=== PATIENT | male | born 1990 | race Caucasian/White ===

== ENCOUNTER 2021-05-07 13:52 | Inpatient (IN) ==
[2021-05-07] MEDS ORDERED: Naloxone 0.4 MG/ML INJ IVP PRN (19:42)
[2021-05-07] MEDS ORDERED: Perflutren Lipid Microsphere 1.3 ML in 0.9 % Sodium Chloride 8.7 ML IVP PRN (19:48)
[2021-05-07] MEDS ORDERED: Ipratropium/Albuterol Neb 3 ML IH PRN (21:01)
[2021-05-07 21:44] LABS: Triiodothyronine (T3) Free 3.09 pg/mL (2.50-3.90)
[2021-05-08 05:35] LABS: Basophils # 0.1 K/mcL (0.0-0.2); Basophils % 0.5 %; Eosinophils # 0.3 K/mcL (0.0-0.6); Eosinophils % 2.8 %; Hematocrit 38.6 % (37.5-50.1); Hemoglobin 12.9 g/dL (12.9-16.9); Immature Granulocytes % 0.4 % (0-4); Lymphocytes % 20.4 %; Mean Corpuscular HGB Conc 33.4 g/dL (31.6-35.5); Mean Corpuscular Hemoglobin 30.6 pg (28.0-33.3); Mean Corpuscular Volume 91.7 fL (83.0-100.0); Monocytes % 9.5 %; Neutrophils # 6.6 K/mcL (1.6-8.9); Platelet Count 279 K/mcL (140-400); Red Blood Count 4.21 M/mcL (4.19-5.50); Red Cell Distribution Width 12.1 % (11.5-14.5); Segmented Neutrophils % 66.4 %
[2021-05-08 05:49] LABS: BUN/Creatinine Ratio 12 (6-26); Blood Urea Nitrogen 16 mg/dL (6-20); Calcium 7.8 mg/dL (8.6-10.3); Carbon Dioxide 29 mEq/L (23-29); Chloride 106 mEq/L (98-107); Chol/HDL Ratio 7.6 (0-4.9); Cholesterol 257 mg/dL (< 200); Glucose 90 mg/dL (70-105); HDL Cholesterol 34 mg/dL (40-59); LDL Cholesterol,Calculated 191 mg/dL (< 100); Osmolality,Calculated 291 (280-300); Potassium 4.1 mEq/L (3.5-5.1); Sodium 140 mEq/L (136-145); Triglycerides 159 mg/dL (< 150); eGFR For African Americans > 60 (> 60); eGFR For Non-African Americans > 60 (> 60)
[2021-05-08 06:25] LABS: Thyroid Stimulating Hormone 69.449 mcIU/mL (0.340-5.600)
[2021-05-08 07:58] LABS: INR 1.2; Prothrombin Time 14.3 Seconds (9.4-12.1)
[2021-05-08] MEDS ORDERED: Azithromycin 500 MG in 0.9 % Sodium Chloride 250 ML IVPB SCH (09:00)
[2021-05-08] MEDS ORDERED: cefTRIAXone 1,000 MG in 0.9 % Sodium Chloride Mini Bag 100 ML IVPB SCH (09:00)
[2021-05-08] MEDS: levoFLOXacin 750 MG/150 ML 750 MG/150 ML BAG IVPB SCH (11:43)
[2021-05-08] MEDS: Ondansetron 4 MG/2 ML VIAL IVP PRN (12:29)
[2021-05-08 13:18] LABS: Adenovirus Not Detected (Not Detect); Bordetella Pertussis Not Detected (Not Detect); Chlamydophila pneumoniae Not Detected (Not Detect); Coronavirus 229E Not Detected (Not Detect); Coronavirus HKU1 Not Detected (Not Detect); Coronavirus NL63 Not Detected (Not Detect); Coronavirus OC43 Not Detected (Not Detect); Human Metapneumovirus Not Detected (Not Detect); Human Rhinovirus/Enterovirus Not Detected (Not Detect); Influenza A Subtype 2009 H1 Not Detected (Not Detect); Influenza B Not Detected (Not Detect); Mycoplasma pneumoniae Not Detected (Not Detect); Parainfluenza Virus 1 Not Detected (Not Detect); Parainfluenza Virus 2 Not Detected (Not Detect); Parainfluenza Virus 3 Not Detected (Not Detect); Parainfluenza Virus 4 Not Detected (Not Detect); Respiratory Syncytial Virus Not Detected (Not Detect); SARS-CoV-2 Not Detected (Not Detect)
[2021-05-08 14:04] LABS: Bilirubin,Urine Negative (Negative); Blood,Urine Moderate (Negative); Clarity,Urine Turbid (Clear); Color,Urine Yellow (Yellow); Glucose,Urine (UA) Normal (Normal); Hyaline Casts,Urine Moderate per lpf (None Seen); Ketones,Urine Negative (Negative); Leukocyte Esterase,Urine Negative (Negative); Mucus,Urine Many per lpf (None-Few); Nitrite,Urine Negative (Negative); Protein,Urine >=600 mg/dL (Neg-Trace); RBC,Urine 15-30 per hpf (0-3); Specific Gravity,Urine > 1.030 (1.010-1.025); Urobilinogen,Urine Normal (Normal); WBC,Urine 15-30 per hpf (0-3)
[2021-05-08 14:40] LABS: Lactate Dehydrogenase 177 Units/L (140-271); Total Protein 5.8 g/dL (6.4-8.9)
[2021-05-08 15:44] LABS: RBC,Pleural Fluid 2000 RBC/mcL
[2021-05-08 15:50] LABS: Glucose,Pleural Fluid 85 mg/dL (No Ref Range); LDH,Pleural Fluid 160 Units/L (No Ref Range); Total Protein,Pleural Fluid < 2.0 g/dL
[2021-05-08] MEDS: Levothyroxine Sodium 100 MCG VIAL IVP SCH (16:22)
[2021-05-08 16:40] LABS: Appearance of Pleural Fl Clear (Clear); Basophils,Pleural Fluid 0 %; Eosinophils,Pleural Fluid 0 %
[2021-05-09] MEDS: Acetaminophen 325 MG TABLET PO PRN ×2 (00:24→21:20)
[2021-05-09] MEDS ORDERED: Prochlorperazine 10 MG/2 ML VIAL IVP ONE (00:43)
[2021-05-09 03:16] LABS: Basophils % 0.4 %; Eosinophils # 0.2 K/mcL (0.0-0.6); Eosinophils % 2.2 %; Hematocrit 38.5 % (37.5-50.1); Hemoglobin 13.1 g/dL (12.9-16.9); Immature Granulocytes % 0.4 % (0-4); Lymphocytes # 1.4 K/mcL (0.6-4.6); Mean Corpuscular Hemoglobin 30.9 pg (28.0-33.3); Mean Corpuscular Volume 90.8 fL (83.0-100.0); Mean Platelet Volume 9.2 fL (9.4-12.4); Monocytes # 0.8 K/mcL (0.0-1.3); Monocytes % 7.6 %; Neutrophils # 7.6 K/mcL (1.6-8.9); Platelet Count 296 K/mcL (140-400); Red Blood Count 4.24 M/mcL (4.19-5.50); Red Cell Distribution Width 11.9 % (11.5-14.5); Segmented Neutrophils % 75.4 %
[2021-05-09 03:43] LABS: BUN/Creatinine Ratio 18 (6-26); Blood Urea Nitrogen 20 mg/dL (6-20); Calcium 7.8 mg/dL (8.6-10.3); Carbon Dioxide 22 mEq/L (23-29); Chloride 105 mEq/L (98-107); Glucose 91 mg/dL (70-105); Osmolality,Calculated 282 (280-300); Potassium 3.6 mEq/L (3.5-5.1); Sodium 135 mEq/L (136-145); eGFR For African Americans > 60 (> 60); eGFR For Non-African Americans > 60 (> 60)
[2021-05-09] MEDS: Levothyroxine Sodium 100 MCG VIAL IVP SCH ×2 (05:41→06:01)
[2021-05-09] MEDS: levoFLOXacin 750 MG/150 ML 750 MG/150 ML BAG IVPB SCH (11:50)
[2021-05-09] MEDS: Ondansetron 4 MG/2 ML VIAL IVP PRN (13:19)
[2021-05-10 06:06] LABS: Basophils % 0.3 %; Eosinophils # 0.3 K/mcL (0.0-0.6); Eosinophils % 3.1 %; Hematocrit 38.6 % (37.5-50.1); Immature Granulocytes % 0.5 % (0-4); Lymphocytes % 23.2 %; Mean Corpuscular HGB Conc 33.7 g/dL (31.6-35.5); Mean Corpuscular Hemoglobin 30.2 pg (28.0-33.3); Mean Corpuscular Volume 89.8 fL (83.0-100.0); Mean Platelet Volume 8.9 fL (9.4-12.4); Monocytes # 0.7 K/mcL (0.0-1.3); Monocytes % 7.5 %; Neutrophils # 5.7 K/mcL (1.6-8.9); Platelet Count 286 K/mcL (140-400); Red Cell Distribution Width 11.9 % (11.5-14.5); Segmented Neutrophils % 65.4 %; White Blood Count 8.7 K/mcL (4.3-11.1)
[2021-05-10 06:21] LABS: Potassium 4.1 mEq/L (3.5-5.1)
[2021-05-10 06:36] LABS: Triiodothyronine (T3) Free 2.24 pg/mL (2.50-3.90)
[2021-05-10] MEDS: levoFLOXacin 750 MG/150 ML 750 MG/150 ML BAG IVPB SCH (09:50)
[2021-05-10] MEDS: Ondansetron ODT 4 MG TAB.RAPDIS SL PRN (10:48)
[2021-05-10] MEDS ORDERED: GuaiFENesin/Codeine Oral Soln 5 ML UDC PO PRN (15:32)
[2021-05-10] MEDS: Acetaminophen 325 MG TABLET PO PRN (23:29)
[2021-05-11] MEDS: levoFLOXacin 500 MG/100 ML 500 MG/100 ML BAG IVPB SCH (07:42)
[2021-05-11] MEDS: Ondansetron ODT 4 MG TAB.RAPDIS SL PRN ×2 (07:45→21:30)
[2021-05-11 12:28] LABS: Basophils % 0.3 %; Eosinophils # 0.2 K/mcL (0.0-0.6); Eosinophils % 1.8 %; Hematocrit 38.9 % (37.5-50.1); Hemoglobin 13.1 g/dL (12.9-16.9); Immature Granulocytes % 0.4 % (0-4); Lymphocytes # 1.8 K/mcL (0.6-4.6); Mean Corpuscular HGB Conc 33.7 g/dL (31.6-35.5); Mean Corpuscular Hemoglobin 30.1 pg (28.0-33.3); Mean Corpuscular Volume 89.4 fL (83.0-100.0); Mean Platelet Volume 9.2 fL (9.4-12.4); Monocytes # 0.7 K/mcL (0.0-1.3); Monocytes % 6.4 %; Neutrophils # 8.3 K/mcL (1.6-8.9); Platelet Count 274 K/mcL (140-400); Red Blood Count 4.35 M/mcL (4.19-5.50); Red Cell Distribution Width 11.9 % (11.5-14.5); Segmented Neutrophils % 75.1 %; White Blood Count 11.1 K/mcL (4.3-11.1)
[2021-05-11 12:44] LABS: Calcium 7.9 mg/dL (8.6-10.3); Potassium 4.4 mEq/L (3.5-5.1)
[2021-05-11 15:28] LABS: Complement C3 159 mg/dL (87-200)
[2021-05-11 16:41] LABS: Amorphous Sediment,Urine Few per hpf (None-Few); Bacteria,Urine Few per hpf (None-Few); Bilirubin,Urine Negative (Negative); Blood,Urine Moderate (Negative); Clarity,Urine Turbid (Clear); Color,Urine Yellow (Yellow); Glucose,Urine (UA) Normal (Normal); Granular Casts,Urine Moderate per lpf (None Seen); Hyaline Casts,Urine Many per lpf (None Seen); Ketones,Urine Negative (Negative); Leukocyte Esterase,Urine Negative (Negative); Mucus,Urine Few per lpf (None-Few); Nitrite,Urine Negative (Negative); Protein,Urine >=600 mg/dL (Neg-Trace); Specific Gravity,Urine > 1.030 (1.010-1.025); Urobilinogen,Urine Normal (Normal); WBC,Urine 15-30 per hpf (0-3)
[2021-05-11 16:58] LABS: Protein/Creatinine Ratio,Urine 4.19 mg/mg (0.00-0.20)
[2021-05-12] MEDS: Ondansetron ODT 4 MG TAB.RAPDIS SL PRN ×2 (08:39→19:21)
[2021-05-12] MEDS: levoFLOXacin 500 MG/100 ML 500 MG/100 ML BAG IVPB SCH (08:39)
[2021-05-12 10:43] LABS: Calcium 7.8 mg/dL (8.6-10.3); Potassium 4.1 mEq/L (3.5-5.1)
[2021-05-12 13:35] LABS: Hepatitis B Surface Antigen Nonreactive (Nonreactive)
[2021-05-12 14:03] LABS: Hepatitis B Core IgM Nonreactive (Nonreactive)
[2021-05-12 14:04] LABS: Hepatitis A Antibody IgM Nonreactive (Nonreactive); Hepatitis C Virus Antibody Nonreactive (Nonreactive)
[2021-05-12] MEDS: 0.9 % Sodium Chloride 1,000 ML IVC SCH ×2 (14:12→21:56)
[2021-05-12] MEDS ORDERED: Prochlorperazine 10 MG/2 ML VIAL IVP PRN (22:42)
[2021-05-13] MEDS: Ondansetron ODT 4 MG TAB.RAPDIS SL PRN ×2 (04:49→11:06)
[2021-05-13 06:33] LABS: Estimated Average Glucose 111 mg/dl; Hemoglobin A1C 5.5 %
[2021-05-13] MEDS: levoFLOXacin 500 MG/100 ML 500 MG/100 ML BAG IVPB SCH (08:34)
[2021-05-13 08:53] LABS: Calcium 7.2 mg/dL (8.6-10.3); Potassium 4.1 mEq/L (3.5-5.1)
[2021-05-13 10:55] LABS: Thyroglobulin Antibody <0.9 IU/mL (0.0-4.0)
[2021-05-13 11:30] LABS: Hepatitis B Surface Antigen Nonreactive (Nonreactive)
[2021-05-13 12:40] LABS: Hepatitis B Surface Antibody 17.89 mIU/mL
[2021-05-13] MEDS: *HR* Promethazine 25 MG/ML VIAL IM PRN (23:29)
[2021-05-14 05:36] LABS: Basophils % 0.3 %; Eosinophils # 0.3 K/mcL (0.0-0.6); Eosinophils % 2.5 %; Hematocrit 36.8 % (37.5-50.1); Hemoglobin 12.3 g/dL (12.9-16.9); Immature Granulocytes % 0.5 % (0-4); Lymphocytes # 2.2 K/mcL (0.6-4.6); Lymphocytes % 18.5 %; Mean Corpuscular HGB Conc 33.4 g/dL (31.6-35.5); Mean Corpuscular Hemoglobin 29.9 pg (28.0-33.3); Mean Corpuscular Volume 89.3 fL (83.0-100.0); Mean Platelet Volume 9.3 fL (9.4-12.4); Monocytes # 0.9 K/mcL (0.0-1.3); Monocytes % 7.7 %; Neutrophils # 8.5 K/mcL (1.6-8.9); Platelet Count 285 K/mcL (140-400); Red Blood Count 4.12 M/mcL (4.19-5.50); Segmented Neutrophils % 70.5 %; White Blood Count 12.1 K/mcL (4.3-11.1)
[2021-05-14 05:45] LABS: INR 1.3; Prothrombin Time 14.4 Seconds (9.4-12.1)
[2021-05-14 05:50] LABS: Calcium 7.5 mg/dL (8.6-10.3); Potassium 4.3 mEq/L (3.5-5.1)
[2021-05-14] MEDS ORDERED: 0.9 % Sodium Chloride 1,000 ML ONE (07:07)
[2021-05-14] MEDS: levoFLOXacin 500 MG/100 ML 500 MG/100 ML BAG IVPB SCH (09:26)
[2021-05-14] MEDS: Ondansetron ODT 4 MG TAB.RAPDIS SL PRN (11:05)
[2021-05-14] MEDS ORDERED: *HR* Heparin 5,000 UNIT/ML VIAL IVP PRN ×2 (11:26)
[2021-05-14] MEDS ORDERED: *HR* Heparin 5,000 UNIT/ML VIAL IVP ONE ×2 (11:26→20:03)
[2021-05-14] MEDS ORDERED: levoFLOXacin 500 MG TABLET PO ONE (11:55)
[2021-05-14] MEDS ORDERED: Furosemide 40 MG/4 ML VIAL IVP ONE ×2 (11:59→19:15)
[2021-05-14] MEDS ORDERED: 0.9 % Sodium Chloride 500 ML ONE (13:49)
[2021-05-14] MEDS ORDERED: *HR* FentaNYL (PF) 100 MCG/2 ML VIAL IVP ONE (13:52)
[2021-05-14] MEDS ORDERED: *HR* Midazolam HCl 2 MG/2 ML VIAL IVP ONE (13:52)
[2021-05-14] MEDS ORDERED: Heparin 1,000 UNITS/500 mL 500 ML ONE (14:29)
[2021-05-14] MEDS ORDERED: *HR* Heparin 5,000 UNIT/ML VIAL ONE (14:35)
[2021-05-14] MEDS ORDERED: 0.9 % Sodium Chloride 250 ML IVC PRN (14:47)
[2021-05-14] MEDS ORDERED: 0.9 % Sodium Chloride 1,000 ML PRIME SCH (15:00)
[2021-05-14] MEDS: Heparin 25,000UNIT/250ML 1/2NS 25,000 UNIT/250 ML IV.SOLN IVC SCH (19:59)
[2021-05-15] MEDS: Ondansetron ODT 4 MG TAB.RAPDIS SL PRN ×3 (02:04→21:09)
[2021-05-15 05:43] LABS: Hematocrit 38.1 % (37.5-50.1); Hemoglobin 12.9 g/dL (12.9-16.9); Mean Corpuscular HGB Conc 33.9 g/dL (31.6-35.5); Mean Corpuscular Hemoglobin 30.5 pg (28.0-33.3); Mean Corpuscular Volume 90.1 fL (83.0-100.0); Mean Platelet Volume 9.2 fL (9.4-12.4); Platelet Count 283 K/mcL (140-400); Red Blood Count 4.23 M/mcL (4.19-5.50); White Blood Count 11.8 K/mcL (4.3-11.1)
[2021-05-15 06:02] LABS: Calcium 7.4 mg/dL (8.6-10.3); Potassium 4.3 mEq/L (3.5-5.1)
[2021-05-15 06:56] LABS: Serine Protease-3 Antibody 0 AU/mL (0-19)
[2021-05-15] MEDS ORDERED: 0.9 % Sodium Chloride 250 ML IVC PRN (07:09)
[2021-05-15] MEDS: *HR* Promethazine 25 MG/ML VIAL IM PRN (10:14)
[2021-05-15] MEDS ORDERED: *HR* Heparin 10,000 UNIT/10 ML VIAL ONE (11:30)
[2021-05-15 14:25] LABS: Hematocrit 39.8 % (37.5-50.1); Hemoglobin 13.3 g/dL (12.9-16.9)
[2021-05-15] MEDS: Heparin 25,000UNIT/250ML 1/2NS 25,000 UNIT/250 ML IV.SOLN IVC SCH (15:12)
[2021-05-16] MEDS: Heparin 25,000UNIT/250ML 1/2NS 25,000 UNIT/250 ML IV.SOLN IVC SCH (03:14)
[2021-05-16 03:29] LABS: Hematocrit 36.2 % (37.5-50.1); Hemoglobin 12.2 g/dL (12.9-16.9); Mean Corpuscular HGB Conc 33.7 g/dL (31.6-35.5); Mean Corpuscular Hemoglobin 30.4 pg (28.0-33.3); Mean Corpuscular Volume 90.3 fL (83.0-100.0); Mean Platelet Volume 9.4 fL (9.4-12.4); Platelet Count 266 K/mcL (140-400); Red Blood Count 4.01 M/mcL (4.19-5.50); Red Cell Distribution Width 12.2 % (11.5-14.5)
[2021-05-16 03:53] LABS: Calcium 7.4 mg/dL (8.6-10.3); Potassium 4.2 mEq/L (3.5-5.1)
[2021-05-16] MEDS: Ondansetron ODT 4 MG TAB.RAPDIS SL PRN ×4 (05:39→22:18)
[2021-05-16 06:36] LABS: Chol/HDL Ratio 7.9 (0-4.9)
[2021-05-16] MEDS ORDERED: 0.9 % Sodium Chloride 250 ML IVC PRN (07:16)
[2021-05-16] MEDS ORDERED: Hydrocortisone 1% OINT 28 GM TUBE TP PRN (09:47)
[2021-05-16] MEDS ORDERED: *HR* HYDROcodone/Acet 5/325 mg TABLET PO PRN (10:31)
[2021-05-16] MEDS ORDERED: *HR* Heparin 10,000 UNIT/10 ML VIAL ONE (11:05)
[2021-05-16 13:48] LABS: Hematocrit 38.6 % (37.5-50.1); Hemoglobin 12.9 g/dL (12.9-16.9)
[2021-05-16] MEDS ORDERED: Prochlorperazine 10 MG/2 ML VIAL IVP PRN (16:26)
[2021-05-16 18:41] LABS: ANCA IFA Titer <1:20 (<1:20)
[2021-05-17 00:54] LABS: Alpha 2 Globulin (PEP) 1.17 g/dL (0.48-1.05); Beta Globulin (PEP) 0.68 g/dL (0.48-1.10)
[2021-05-17 03:55] LABS: Hematocrit 36.1 % (37.5-50.1); Hemoglobin 12.1 g/dL (12.9-16.9); Mean Corpuscular HGB Conc 33.5 g/dL (31.6-35.5); Mean Corpuscular Hemoglobin 30.1 pg (28.0-33.3); Mean Corpuscular Volume 89.8 fL (83.0-100.0); Mean Platelet Volume 9.5 fL (9.4-12.4); Platelet Count 286 K/mcL (140-400); Red Blood Count 4.02 M/mcL (4.19-5.50); Red Cell Distribution Width 11.8 % (11.5-14.5); White Blood Count 9.5 K/mcL (4.3-11.1)
[2021-05-17 04:17] LABS: Calcium 7.6 mg/dL (8.6-10.3); Potassium 4.4 mEq/L (3.5-5.1)
[2021-05-17] MEDS: Ondansetron ODT 4 MG TAB.RAPDIS SL PRN ×2 (08:36→16:37)
[2021-05-17] MEDS: Torsemide 20 MG TABLET PO SCH ×2 (11:11→20:29)
[2021-05-17 18:39] LABS: Coxsackie B Type 1 Antibody <1:10 (<1:10); Coxsackie B Type 2 Antibody 1:10 (<1:10); Coxsackie B Type 3 Antibody <1:10 (<1:10); Coxsackie B Type 4 Antibody <1:10 (<1:10); Coxsackie B Type 5 Antibody 1:20 (<1:10)
[2021-05-18] MEDS: Ondansetron ODT 4 MG TAB.RAPDIS SL PRN ×2 (00:06→09:30)
[2021-05-18 00:35] VITALS: O2SAT 90
[2021-05-18 00:44] LABS: Hematocrit 36.5 % (37.5-50.1); Hemoglobin 12.2 g/dL (12.9-16.9); Mean Corpuscular HGB Conc 33.4 g/dL (31.6-35.5); Mean Corpuscular Hemoglobin 29.7 pg (28.0-33.3); Mean Corpuscular Volume 88.8 fL (83.0-100.0); Mean Platelet Volume 9.6 fL (9.4-12.4); Platelet Count 367 K/mcL (140-400); Red Blood Count 4.11 M/mcL (4.19-5.50); Red Cell Distribution Width 11.9 % (11.5-14.5)
[2021-05-18 00:45] LABS: White Blood Count 21.3 K/mcL (4.3-11.1)
[2021-05-18 00:58] LABS: Calcium 7.3 mg/dL (8.6-10.3)
[2021-05-18 08:36] VITALS: BP 142/84; PULSE 90; TEMP 98
[2021-05-18 11:01] LABS: ANCA IFA Pattern NONE DETECTED (None Detected)
[2021-05-18 11:01] LABS: Immunoglobulin A 277 mg/dL (68-408); Immunoglobulin G 484 mg/dL (768-1632); Immunoglobulin M 59 mg/dL (35-263)
[2021-05-18 11:17] LABS: Coxsackie B Type 6 Antibody <1:10 (<1:10)
[2021-05-18 11:18] LABS: IFE Reflexed IFE Done
[2021-05-18 11:36] LABS: GBM IgG Multiplex Bead Assay 0 AU/mL (0-19); Glomerular Basement Memb IgG NEGATIVE (Negative)
[2021-05-19] MEDS ORDERED: predniSONE 20 MG TABLET PO SCH (09:00)
== END 2021-05-18 09:58 | disposition short-term general hospital (02) | DRG 193 ==
LOC: 3ANU → SUATTDRO 18:15 → 2ANU 05-15 21:44
PROVIDERS: ADMIT Student in an Organized Health Care Education/Training Program; ATTEND Family Medicine

== ENCOUNTER 2021-10-02 16:05 | Inpatient (IN) ==
[2021-10-02 18:42] LABS: Basophils # 0.1 K/mcL (0.0-0.2); Basophils % 0.6 %; Eosinophils # 0.3 K/mcL (0.0-0.6); Eosinophils % 1.9 %; Hematocrit 43.3 % (37.5-50.1); Hemoglobin 13.9 g/dL (12.9-16.9); Immature Granulocytes % 1.2 % (0-4); Lymphocytes # 2.9 K/mcL (0.6-4.6); Lymphocytes % 21.5 %; Mean Corpuscular HGB Conc 32.1 g/dL (31.6-35.5); Mean Corpuscular Hemoglobin 29.6 pg (28.0-33.3); Mean Corpuscular Volume 92.3 fL (83.0-100.0); Mean Platelet Volume 8.6 fL (9.4-12.4); Monocytes % 7.4 %; Platelet Count 698 K/mcL (140-400); Red Blood Count 4.69 M/mcL (4.19-5.50); Red Cell Distribution Width 12.1 % (11.5-14.5); Segmented Neutrophils % 67.4 %; White Blood Count 13.4 K/mcL (4.3-11.1)
[2021-10-02 19:03] LABS: BUN/Creatinine Ratio 14 (6-26); Blood Urea Nitrogen 13 mg/dL (6-20); Calcium 8.7 mg/dL (8.6-10.3); Carbon Dioxide 29 mEq/L (23-29); Chloride 101 mEq/L (98-107); Glucose 93 mg/dL (70-105); Osmolality,Calculated 288 (280-300); Potassium 3.6 mEq/L (3.5-5.1); Sodium 139 mEq/L (136-145); eGFR For African Americans > 60 (> 60); eGFR For Non-African Americans > 60 (> 60)
[2021-10-02 19:04] LABS: Troponin I < 0.03 ng/mL (< 0.04)
[2021-10-02 21:02] LABS: Influenza A PCR Negative (Negative); Influenza B PCR Negative (Negative); Resp. Syncytial Virus PCR Negative (Negative)
[2021-10-02 21:05] LABS: SARS-CoV-2 by PCR (In House) Negative (Negative)
[2021-10-02] MEDS ORDERED: Isovue-370 500 ML BOTTLE IVP ONE (21:10)
[2021-10-02] MEDS ORDERED: Cefepime HCl 1,000 MG in Water for inj. (sterile) 10 ML IVP ONE (23:00)
[2021-10-02] MEDS ORDERED: Azithromycin 500 MG in 0.9 % Sodium Chloride 250 ML IVPB ONE (23:32)
[2021-10-03] MEDS ORDERED: *HR* HYDROcodone/Acet 5/325 mg TABLET PO PRN (00:11)
[2021-10-03] MEDS ORDERED: *HR* Promethazine 25 MG/ML VIAL IM PRN (00:11)
[2021-10-03] MEDS ORDERED: Naloxone 0.4 MG/ML INJ IVP PRN (00:11)
[2021-10-03] MEDS ORDERED: *HR* OxyCODONE Immed Rel 5 MG TABLET PO PRN (00:11)
[2021-10-03] MEDS ORDERED: Melatonin 3 MG TABLET PO PRN (00:11)
[2021-10-03] MEDS ORDERED: Ondansetron 4 MG/2 ML VIAL IVP PRN (00:11)
[2021-10-03] MEDS ORDERED: Acetaminophen 325 MG TABLET PO PRN (00:11)
[2021-10-03 01:51] LABS: Alanine Aminotransferase 28 Units/L (7-52); Albumin 3.2 g/dL (3.5-5.7); Alkaline Phosphatase 68 Units/L (34-104); Aspartate Amino Transferase 16 Units/L (13-39); BUN/Creatinine Ratio 13 (6-26); Bilirubin,Total 0.2 mg/dL (0.3-1.0); Blood Urea Nitrogen 12 mg/dL (6-20); Calcium 8.7 mg/dL (8.6-10.3); Carbon Dioxide 23 mEq/L (23-29); Chloride 106 mEq/L (98-107); Globulin 3.3 g/dL (2.4-3.5); Glucose 78 mg/dL (70-105); Osmolality,Calculated 281 (280-300); Phosphorous 3.5 mg/dL (2.7-4.5); Potassium 3.3 mEq/L (3.5-5.1); Sodium 136 mEq/L (136-145); Total Protein 6.5 g/dL (6.4-8.9); eGFR For African Americans > 60 (> 60); eGFR For Non-African Americans > 60 (> 60)
[2021-10-03] MEDS: Ringers Solution, Lactated 1,000 ML IVC SCH ×2 (01:58→12:40)
[2021-10-03 02:21] LABS: Basophils # 0.1 K/mcL (0.0-0.2); Basophils % 0.8 %; Eosinophils # 0.2 K/mcL (0.0-0.6); Eosinophils % 1.9 %; Hematocrit 44.9 % (37.5-50.1); Hemoglobin 13.7 g/dL (12.9-16.9); Immature Granulocytes % 1.2 % (0-4); Lymphocytes # 3.3 K/mcL (0.6-4.6); Lymphocytes % 25.6 %; Mean Corpuscular HGB Conc 30.5 g/dL (31.6-35.5); Mean Corpuscular Hemoglobin 28.9 pg (28.0-33.3); Mean Corpuscular Volume 94.7 fL (83.0-100.0); Mean Platelet Volume 8.7 fL (9.4-12.4); Monocytes # 0.9 K/mcL (0.0-1.3); Monocytes % 7.1 %; Neutrophils # 8.1 K/mcL (1.6-8.9); Platelet Count 606 K/mcL (140-400); Red Blood Count 4.74 M/mcL (4.19-5.50); Red Cell Distribution Width 12.1 % (11.5-14.5); Segmented Neutrophils % 63.4 %; White Blood Count 12.7 K/mcL (4.3-11.1)
[2021-10-03] MEDS: Doxycycline 100 MG in 0.9 % Sodium Chloride Mini Bag 100 ML IVPB SCH ×2 (05:22→17:28)
[2021-10-03] MEDS: *HR* Heparin 5,000 UNIT/ML VIAL SQ SCH ×3 (05:23→23:01)
[2021-10-03] MEDS ORDERED: cefTRIAXone 1,000 MG in 0.9 % Sodium Chloride Mini Bag 100 ML IVPB SCH (09:00)
[2021-10-03 12:27] LABS: INR 1.2; Prothrombin Time 13.1 Seconds (9.4-12.1)
[2021-10-03 12:45] LABS: Lactate Dehydrogenase 184 Units/L (140-271); Total Protein 6.5 g/dL (6.4-8.9)
[2021-10-03] MEDS ORDERED: Ondansetron 4 MG/2 ML VIAL ONE (13:31)
[2021-10-03] MEDS ORDERED: Lidocaine -MPF 2% 5 ML VIAL ONE (13:31)
[2021-10-03] MEDS ORDERED: *HR* Midazolam HCl 2 MG/2 ML VIAL ONE (13:32)
[2021-10-03] MEDS ORDERED: *HR* FentaNYL (PF) 100 MCG/2 ML VIAL ONE (13:32)
[2021-10-03] MEDS ORDERED: Lidocaine HCL 4 ML Topical Solution (Laryng-O-Jet Kit Sterile Pak) TP ONE (14:07)
[2021-10-03] MEDS ORDERED: *HR* Succinylcholine 200 MG/10 ML VIAL IVP ONE (14:07)
[2021-10-03 16:27] LABS: RBC,Pleural Fluid 57000 RBC/mcL
[2021-10-03 16:36] LABS: Appearance of Pleural Fl Cloudy (Clear)
[2021-10-03 16:37] LABS: Total Protein,Pleural Fluid 3.4 g/dL
[2021-10-03 18:48] LABS: Appearance of Body Fluid Hazy (Clear); Volume of Body Fluid 15 mL
[2021-10-03] MEDS: Piperacillin/Tazobactam 3.375 GM in 0.9 % Sodium Chloride Mini Bag 100 ML IVPB SCH (23:01)
[2021-10-04 02:09] LABS: Hematocrit 40.3 % (37.5-50.1); Mean Corpuscular HGB Conc 32.3 g/dL (31.6-35.5); Mean Corpuscular Hemoglobin 29.2 pg (28.0-33.3); Mean Corpuscular Volume 90.6 fL (83.0-100.0); Mean Platelet Volume 8.7 fL (9.4-12.4); Platelet Count 609 K/mcL (140-400); Red Blood Count 4.45 M/mcL (4.19-5.50); White Blood Count 15.6 K/mcL (4.3-11.1)
[2021-10-04 02:30] LABS: Alanine Aminotransferase 26 Units/L (7-52); Albumin 2.9 g/dL (3.5-5.7); Albumin/Globulin Ratio 0.9 (1.1-2.2); Alkaline Phosphatase 64 Units/L (34-104); Aspartate Amino Transferase 13 Units/L (13-39); BUN/Creatinine Ratio 14 (6-26); Bilirubin,Total 0.2 mg/dL (0.3-1.0); Blood Urea Nitrogen 13 mg/dL (6-20); Calcium 8.8 mg/dL (8.6-10.3); Carbon Dioxide 22 mEq/L (23-29); Chloride 106 mEq/L (98-107); Globulin 3.3 g/dL (2.4-3.5); Glucose 181 mg/dL (70-105); Osmolality,Calculated 287 (280-300); Sodium 136 mEq/L (136-145); Total Protein 6.2 g/dL (6.4-8.9); eGFR For African Americans > 60 (> 60); eGFR For Non-African Americans > 60 (> 60)
[2021-10-04 02:41] LABS: Thyroid Stimulating Hormone 5.531 mcIU/mL (0.340-5.600)
[2021-10-04] MEDS: *HR* Heparin 5,000 UNIT/ML VIAL SQ SCH ×3 (05:23→22:57)
[2021-10-04] MEDS: Doxycycline 100 MG in 0.9 % Sodium Chloride Mini Bag 100 ML IVPB SCH (05:23)
[2021-10-04] MEDS: Piperacillin/Tazobactam 3.375 GM in 0.9 % Sodium Chloride Mini Bag 100 ML IVPB SCH ×3 (08:18→22:57)
[2021-10-04] MEDS ORDERED: Vancomycin 1,500 MG/265 ML IV.SOLN IVPB SCH (14:00)
[2021-10-04] MEDS ORDERED: Ipratropium/Albuterol Neb 3 ML IH PRN (20:08)
[2021-10-05 02:20] LABS: Hematocrit 39.2 % (37.5-50.1); Hemoglobin 12.6 g/dL (12.9-16.9); Mean Corpuscular HGB Conc 32.1 g/dL (31.6-35.5); Mean Corpuscular Hemoglobin 29.5 pg (28.0-33.3); Mean Corpuscular Volume 91.8 fL (83.0-100.0); Mean Platelet Volume 8.6 fL (9.4-12.4); Platelet Count 548 K/mcL (140-400); Red Blood Count 4.27 M/mcL (4.19-5.50); Red Cell Distribution Width 12.3 % (11.5-14.5); White Blood Count 15.9 K/mcL (4.3-11.1)
[2021-10-05 02:30] LABS: Alanine Aminotransferase 25 Units/L (7-52); Albumin 2.8 g/dL (3.5-5.7); Albumin/Globulin Ratio 0.9 (1.1-2.2); Alkaline Phosphatase 57 Units/L (34-104); Aspartate Amino Transferase 14 Units/L (13-39); BUN/Creatinine Ratio 11 (6-26); Bilirubin,Total 0.2 mg/dL (0.3-1.0); Blood Urea Nitrogen 12 mg/dL (6-20); Calcium 8.4 mg/dL (8.6-10.3); Carbon Dioxide 23 mEq/L (23-29); Chloride 106 mEq/L (98-107); Globulin 3.2 g/dL (2.4-3.5); Glucose 90 mg/dL (70-105); Osmolality,Calculated 287 (280-300); Potassium 3.3 mEq/L (3.5-5.1); Sodium 139 mEq/L (136-145); eGFR For African Americans > 60 (> 60); eGFR For Non-African Americans > 60 (> 60)
[2021-10-05] MEDS: *HR* Heparin 5,000 UNIT/ML VIAL SQ SCH ×2 (05:02→13:59)
[2021-10-05] MEDS: Piperacillin/Tazobactam 3.375 GM in 0.9 % Sodium Chloride Mini Bag 100 ML IVPB SCH ×2 (07:06→18:46)
[2021-10-05 15:09] VITALS: BP 120/80; PULSE 95; TEMP 97.9; O2SAT 93
== END 2021-10-05 18:49 | disposition home or self-care (01) | DRG 194 ==
LOC: 3BNU 16:05 → EMEROOARM 16:05 → SUATTDRO 10-03 00:14 → 3BNU 10-03 00:50
PROVIDERS: ADMIT Internal Medicine; ATTEND Registered Nurse